=== PATIENT | male | born 2000 | race Two or more races ===

== ENCOUNTER 2019-09-25 02:26 | Emergency (ER) | payer MEDICAID, OTHER ==
[~2019-09-25] VITALS: Ht 165.1 cm; Wt 90.7 kg
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
--- NOTE | 2019-09-25 03:30 | NUR ---
pt in bed, sleeping, -sob, vss, nad ntoed
--- NOTE | 2019-09-25 04:00 | NUR ---
pt given snacks and drink, tolerated, -n/v
--- NOTE | 2019-09-25 05:55 | NUR ---
CALLED ALICIA , FRIEND TO MUSEUM PREPARATOR THE PT. NO ANSWER. LEFT A MESSAGE.
--- NOTE | 2019-09-25 06:15 | NUR ---
Patient discharged to home in stable condition. Written and verbal after care instructions given. Patient verbalizes understanding of instruction. Patient given maps and instructions on how to take bus or directions to nearby destination. Patient is ambulatory with a steady gait.
[2019-09-25 06:16] VITALS: BP 132/81
== END 2019-09-25 06:16 | disposition home or self-care (01) ==
LOC: EDBD 02:28 → ER 02:28
DX: T40.1X1A Poisoning by heroin, accidental (unintentional), initial encounter (principal); Y92.89 Other specified places as the place of occurrence of the external cause
CPT/HCPCS: 80305

== ENCOUNTER 2021-02-22 01:20 | Emergency (ER) | payer MEDICAID, OTHER ==
[~2021-02-22] VITALS: Ht 180.3 cm; Wt 81.6 kg
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
--- NOTE | 2021-02-22 02:09 | NUR ---
XRAY AT BEDSIDE
[2021-02-22] MEDS ORDERED: LIDOCAINE 2% 20 ML MDV ONE (02:48)
[2021-02-22] MEDS ORDERED: LIDOCAINE 2% 20 ML MDV TP ONE (03:00)
--- NOTE | 2021-02-22 04:07 | NUR ---
CALLED MARGARETTE TO HAVE IMAGE READ
[2021-02-22] MEDS ORDERED: NAPR-1009 PO (04:26)
--- NOTE | 2021-02-22 04:28 | NUR ---
Patient discharged to home in stable condition. Written and verbal after care instructions given. Patient verbalizes understanding of instruction. IV removed. Catheter intact and site benign. Pressure and 4x4 applied to site. No bleeding noted.
[2021-02-22 04:46] VITALS: BP 140/84
== END 2021-02-22 04:28 | disposition home or self-care (01) ==
LOC: ER 01:20
DX: S63.064A Dislocation of metacarpal (bone), proximal end of right hand, initial encounter (principal); S63.260A Dislocation of metacarpophalangeal joint of right index finger, initial encounter; S63.262A Dislocation of metacarpophalangeal joint of right middle finger, initial encounter; S63.264A Dislocation of metacarpophalangeal joint of right ring finger, initial encounter; Z95.0 Presence of cardiac pacemaker; Y04.0XXA Assault by unarmed brawl or fight, initial encounter; Y93.89 Activity, other specified; Y92.89 Other specified places as the place of occurrence of the external cause; Y99.8 Other external cause status
CPT/HCPCS: 26700 ×3; 73130 ×2; 99285; J3490; 90935-TC

== ENCOUNTER 2021-02-26 11:47 | Emergency (ER) | payer OTHER ==
[~2021-02-26] VITALS: Ht 180.3 cm; Wt 86.2 kg
[~2021-02-26 11:47] MED LIST: NAPR-1009 PO
[2021-02-26 12:02] VITALS: BP 157/103
--- NOTE | 2021-02-26 12:06 | NUR ---
PULP PLANT SUPERVISOR AT BEDSIDE
--- NOTE | 2021-02-26 13:12 | NUR ---
PAGED DR. DASILVA, ORTHO DIGITAL CARTOGRAPHIC TECHNICIAN, TO SPEAK TO DR. MCDERMOTT
[2021-02-26 14:06] LABS: BASOPHILS % (AUTO) 0.4 % (0.0-2.0); EOSINOPHILS % (AUTO) 0.3 % (0.0-6.0); HEMATOCRIT 48 % (39-51); HEMOGLOBIN 16.1 g/dL (13.5-17.5); LYMPHOCYTES # (AUTO) 2.3 K/uL (0.8-4.8); LYMPHOCYTES % (AUTO) 29.7 % (20.0-44.0); MEAN CORPUSCULAR HGB CONC 34 g/dl (31.0-36.0); MEAN CORPUSCULAR VOLUME 94 fL (80-96); MONOCYTES # (AUTO) 0.6 K/uL (0.1-1.30); MONOCYTES % (AUTO) 8.2 % (2.0-12.0); NEUTROPHILS # (AUTO) 4.8 K/uL (1.8-8.9); NEUTROPHILS % (AUTO) 61.4 % (43.0-81.0); PLATELET COUNT (AUTO) 268 K/uL (150-450); RED BLOOD CELL COUNT(AUTO) 5.13 MIL/uL (4.5-6.0); WHITE BLOOD COUNT (AUTO) 7.8 K/uL (4.3-11.0)
[2021-02-26 14:15] LABS: CALCIUM, SERUM 9.2 mg/dL (8.5-10.1); CREATININE 0.8 mg/dL (0.6-1.3); POTASSIUM 3.6 mmol/L (3.5-5.1)
--- NOTE | 2021-02-26 14:17 | NUR ---
COVID SWAB DONE AND SENT TO THE LAB
--- NOTE | 2021-02-26 16:27 | NUR ---
Patient does not wish to proceed with medical care recommended by Dr. Urias. Patient given information related to possible complications, up to and including , which could occur as a result of leaving the hospital at this time. Patient verbalizes understanding of risks involved due to leaving against medical advice. Patient has signed AMA form.
== END 2021-02-26 16:29 | disposition left against medical advice (07) ==
LOC: ER 11:53
DX: S63.260D Dislocation of metacarpophalangeal joint of right index finger, subsequent encounter (principal); S63.262D Dislocation of metacarpophalangeal joint of right middle finger, subsequent encounter; S63.264D Dislocation of metacarpophalangeal joint of right ring finger, subsequent encounter; Y04.8XXD Assault by other bodily force, subsequent encounter; Z95.0 Presence of cardiac pacemaker; R00.1 Bradycardia, unspecified; Z20.822 Contact with and (suspected) exposure to COVID-19; R03.0 Elevated blood-pressure reading, without diagnosis of hypertension; Z53.29 Procedure and treatment not carried out because of patient's decision for other reasons
CPT/HCPCS: 29125; 36415; 71045; 73130; 80048; 85025; 85610; 86850; 87426; 93005; 99285; C9803